=== PATIENT | female | born 1985 | race Caucasian/White ===

== ENCOUNTER 2018-11-26 08:35 | Emergency (ER) | payer SELFPAY ==
[~2018-11-26] VITALS: Ht 165.1 cm; Wt 55.3 kg
--- NOTE | 2018-11-26 08:47 | NUR ---
patient presented to the ER from home, left foot laceration, stepped on a broken glass by accident. On room air, breathing evenly and unlabored. Kept comfortable, will continue to monitor accordingly.
--- NOTE | 2018-11-26 09:20 | NUR ---
md at bedside, tending to left foot laceration. Left foot cleaned and sutured by MD. Care after instructions provided by .
--- NOTE | 2018-11-26 09:58 | NUR ---
Patient discharged to home in stable condition. Written and verbal after care instructions given. Patient verbalizes understanding of instruction.
[2018-11-26 09:59] VITALS: BP 91/69
== END 2018-11-26 10:01 | disposition home or self-care (01) ==
LOC: ER 08:42
DX: S91.322A Laceration with foreign body, left foot, initial encounter (principal); Z91.040 Latex allergy status; W25.XXXA Contact with sharp glass, initial encounter; Y93.89 Activity, other specified; Y92.89 Other specified places as the place of occurrence of the external cause; Y99.8 Other external cause status
CPT/HCPCS: 12032; 99284; A4606; A6402 ×2